=== PATIENT | female | born 1945 | race Caucasian/White ===

== ENCOUNTER 2020-04-10 12:00 | Emergency (ER) | payer MEDICARE, BC ==
[~2020-04-10] VITALS: Ht 162.6 cm; Wt 88.5 kg
--- OUTSIDE RECORDS SUMMARY | ~2020-04-10 | XMS | Encounter Summary ---
Demographics + + + | Address | [address] | | | [place] [address] | + + + | Home Phone | | + + + | Preferred Language | Unknown | + + + | Marital Status | | + + + | Judaism Affiliation | Unknown | + + + | Race | Unknown | + + + | Ethnic Group | Unknown | + + + Author + + + | Author | [facility] | | | and [place] | + + + | Organization | [facility] | | | and [place] | + + + | Address | Unknown | + + + | Phone | Unavailable | + + + Support + + +---------+ + | Name | Relationship | Address | Phone | + + +---------+ + | Severo Johnson | ECON | Unknown | | + + +---------+ + Care Team Providers + +------+ + | Care Secured Entrance Monitor Name | Role | Phone | + +------+ + | Miguel Griggs MD | PCP | | + +------+ + Encounter Details +--------+ + + + + | Date | Type | Department | Care Team | Description | +--------+ + + + + | 01/12/ | Orders Only | [facility] | Maurilio Toscano, | | | 2013 | | NEPRHOLOGY [place] | [address] | | | | | [address] | [address] [place], | | | | | [address] [place], [place] | [place] [address] | | | | | [address] | [phone] | | | | | [phone] | | | +--------+ + + + + Social History + +-------+ +--------+------+ | Tobacco Use | Types | Packs/Day | Years | Date | | | | | Used | | + +-------+ +--------+------+ | Never Assessed | | | | | + +-------+ +--------+------+ + + + | Sex Assigned at | Date Recorded | | | | + + + | Not on file | | + + + documented as of this encounter Plan of Treatment Not on filedocumented as of this encounter Procedures + +--------+ + + + | Procedure Name | Priori | Date/Time | Associated Diagnosis | Comments | | | ty | | | | + +--------+ + + + | PARATHYROID HORMONE, | Routin | 01/12/2014 | | Results for this | | INTACT AND CALCIUM | e | 12:00 AM | | procedure are in the | | | | PDT | | results section. | + +--------+ + + + documented in this encounter Results Parathyroid Hormone, Intact and Calcium (01/12/2014 12:00 AM PDT) + +-------+ + + + | Component | Value | Ref Range | Performed | Pathologist | | | | | At | Signature | + +-------+ + + + | PTH Intact | 65.46 | | EXTERNAL | | | | | | LAB | | + +-------+ + + + | Calcium | 10.1 | | EXTERNAL | | | | | | LAB | | + +-------+ + + + + + | Specimen | + + | Blood specimen | | (specimen) | + + + +---------+ + + | Performing | Address | City/State/Zipcode | Phone Number | | Organization | | | | + +---------+ + + | EXTERNAL LAB | | | | + +---------+ + + documented in this encounter Visit Diagnoses Not on filedocumented in this encounter"
--- OUTSIDE RECORDS SUMMARY | ~2020-04-10 | XMS | Encounter Summary ---
Demographics + + + | Address | [address] | | | [place] [address] | + + + | Home Phone | | + + + | Preferred Language | Unknown | + + + | Marital Status | | + + + | Methodist Affiliation | Unknown | + + + | Race | Unknown | + + + | Ethnic Group | Unknown | + + + Author + + + | Author | [facility] | | | and [place] | + + + | Organization | [facility] | | | and [...] Team Providers + +------+ + | Care Shift Supervisor Name | Role | Phone | + +------+ + | Miguel Griggs MD | PCP | | + +------+ + Encounter Details +--------+ + + + + | Date | Type | Department | Care Team | Description | +--------+ + + + + | 01/12/ | Orders Only | [facility] | Maurilio Toscano, | | | 2013 | | NEPRHOLOGY [place] | [address] | | | | | [address] | [address] [place], | | | | | [address] [place], [place] | [place] [address] | | | | | [address] | [phone] | | | | | [phone] | | | +--------+ + + + [...] | + +--------+ + + + | EXTERNAL LAB: CBC | Routin | 01/12/2014 | | Results for this | | | e | 12:00 AM | | procedure are in the | | | | PDT | | results section. | + +--------+ + + + | URINALYSIS WITH | Routin | 01/12/2014 | | Results for this | | MICROSCOPIC WITH | e | 12:00 AM | | procedure are in the | | CULTURE IF INDICATED | | PDT | | results section. | + +--------+ + + + | VITAMIN D, | Routin | 01/12/2014 | | Results for this | | DEFICIENCY SCREEN | e | 12:00 AM | | procedure are in the | | (25-HYDROXY) | | PDT | | results section. | + +--------+ + + + | MICROALBUMIN/CREATIN | Routin | 01/12/2014 | | Results for this | | INE RATIO, URINE | e | 12:00 AM | | procedure are in the | | TEST | | PDT | | results section. | + +--------+ + + + | MAGNESIUM | Routin | 01/12/2014 | | Results for this | | | e | 12:00 AM | | procedure are in the | | | | PDT | | results section. | + +--------+ + + + | RENAL FUNCTION PANEL | Routin | 01/12/2014 | | Results for this | | | e | 12:00 AM | | procedure are in the | | | | PDT | | results section. | + +--------+ + + + documented in this encounter Results Urinalysis with Microscopic with Culture if Indicated (01/12/2014 12:00 AM PDT) + + + + + + | Component | Value | Ref Range | Performed | Pathologist | | | | | At | Signature | + + + + + + | Color | Yellow | | EXTERNAL | | | | | | LAB | | + + + + + + | Clarity, | Clear | | EXTERNAL | | | Urine | | | LAB | | + + + + + + | Spec Grav, | 1.018 | | EXTERNAL | | | Fluid | | | LAB | | + + + + + + | Leukocyte | 1+Comment: 100 | | EXTERNAL | | | Esterase, | | | LAB | | | Urine | | | | | + + + + + + | Nitrite, | Negative | | EXTERNAL | | | Urine | | | LAB | | + + + + + + | Urobilinoge | Normal | | EXTERNAL | | | n, Urine | | | LAB | | + + + + + + | Total | Negative | | EXTERNAL | | | Protein | | | LAB | | + + + + + + | pH, Urine | 5 | | EXTERNAL | | | | | | LAB | | + + + + + + | Blood, | Negative | | EXTERNAL | | | Urine | | | LAB | | + + + + + + | Ketones | Negative | | EXTERNAL | | | | | | LAB | | + + + + + + | Bilirubin, | Negative | | EXTERNAL | | | Urine | | | LAB | | + + + + + + | Glucose, | Negative | | EXTERNAL | | | Urine | | | LAB | | + + + + + + | WBC, UA | | | EXTERNAL | | | | | | LAB | | + + + + + + | RBC, UA | | | EXTERNAL | | | | | | LAB | | + + + + + + | Epithelial | | | EXTERNAL | | | Cells | | | LAB | | + + + + + + | Bacteria, | | | EXTERNAL | | | UA | | | LAB | | + + + + + + | HYALINE | | | EXTERNAL | | | CASTS UA | | | LAB | | + + + + + + + + | Specimen | + + | | + + + +---------+ + + | Performing | Address | City/State/Zipcode | Phone Number | | Organization | | | | + +---------+ + + | EXTERNAL LAB | | | | + +---------+ + + Microalbumin/Creatinine Ratio, Urine (01/12/2014 12:00 AM PDT) + +-------+ + + + | Component | Value | Ref Range | Performed | Pathologist | | | | | At | Signature | + +-------+ + + + | ALBUMIN/CRE | 0 | | EXTERNAL | | | ATININE | | | LAB | | | RATIO.URINE | | | | | | .ORD.MG/G | | | | | | (BEAKER) | | | | | | | | | | | | | | | | | + +-------+ + + + + + | Specimen | + + | Urine specimen | | (specimen) | + + + +---------+ + + | Performing | Address | City/State/Zipcode | Phone Number | | Organization | | | | + +---------+ + + | EXTERNAL LAB | | | | + +---------+ + + Vitamin D, Deficiency Screen (25-Hydroxy) (01/12/2014 12:00 AM PDT) + +-------+ + + + | Component | Value | Ref Range | Performed | Pathologist | | | | | At | Signature | + +-------+ + + + | Vit D, | 27 | | EXTERNAL | | | 25-Hydroxy | | | LAB | | + +-------+ + + + + + | Specimen | + + | Blood specimen | | (specimen) | + + + +---------+ + + | Performing | Address | City/State/Zipcode | Phone Number | | Organization | | | | + +---------+ + + | EXTERNAL LAB | | | | + +---------+ + + External Lab: CBC (01/12/2014 12:00 AM PDT) + +-------+ + + + | Component | Value | Ref Range | Performed | Pathologist | | | | | At | Signature | + +-------+ + + + | WBC | 6.0 | 10 | EXTERNAL | | | | | | LAB | | + +-------+ + + + | Non- | 5.05 | 10 | EXTERNAL | | | Red Blood | | | LAB | | | Cells | | | | | | Counted | | | | | + +-------+ + + + | Hemoglobin | 14.7 | g/dL | EXTERNAL | | | | | | LAB | | + +-------+ + + + | Hematocrit, | 44.2 | % | EXTERNAL | | | POC | | | LAB | | + +-------+ + + + | MCV | 87.5 | fL | EXTERNAL | | | | | | LAB | | + +-------+ + + + | MCH | 29 | pg | EXTERNAL | | | | | | LAB | | + +-------+ + + + | MCHC | 33 | g/dL | EXTERNAL | | | | | | LAB | | + +-------+ + + + | Platelet | 245 | K/ L | EXTERNAL | | | Count | | | LAB | | | Plasma | | | | | + +-------+ + + + | RDW-CV | 14.6 | % | EXTERNAL | | | | | | LAB | | + +-------+ + + + | MPV | | fL | EXTERNAL | | | | | | LAB | | + +-------+ + + + | Differentia | Auto | | EXTERNAL | | | l Type | | | LAB | | + +-------+ + + + | % Segmented | 63.7 | % | EXTERNAL | | | | | | LAB | | | Neutrophils | | | | | + +-------+ + + + | % | 20.0 | % | EXTERNAL | | | Lymphocytes | | | LAB | | + +-------+ + + + | % Monocytes | 10.4 | % | EXTERNAL | | | | | | LAB | | + +-------+ + + + | % | 4.9 | % | EXTERNAL | | | Eosinophils | | | LAB | | + +-------+ + + + | % Basophils | 1.0 | % | EXTERNAL | | | | | | LAB | | + +-------+ + + + | Absolute | | / L | EXTERNAL | | | Segmented | | | LAB | | | Neutrophils | | | | | + +-------+ + + + | Absolute | | / L | EXTERNAL | | | Lymphocytes | | | LAB | | + +-------+ + + + | Absolute | | / L | EXTERNAL | | | Monocytes | | | LAB | | + +-------+ + + + | Absolute | | / L | EXTERNAL | | | Eosinophils | | | LAB | | + +-------+ + + + | Absolute | | / L | EXTERNAL | | | Basophils | | | LAB | | + +-------+ + + + + + | Specimen | + + | Blood specimen | | (specimen) | + + + +---------+ + + | Performing | Address | City/State/Zipcode | Phone Number | | Organization | | | | + +---------+ + + | EXTERNAL LAB | | | | + +---------+ + + Magnesium (01/12/2014 12:00 AM PDT) + +-------+ + + + | Component | Value | Ref Range | Performed | Pathologist | | | | | At | Signature | + +-------+ + + + | Magnesium | 2.0 | mg/dL | EXTERNAL | | | | | [...] | | | + +---------+ + + Renal Function Panel (01/12/2014 12:00 AM PDT) + +-------+ + + + | Component | Value | Ref Range | Performed | Pathologist | | | | | At | Signature | + +-------+ + + + | Glucose, | 81 | mg/dL | EXTERNAL | | | Fasting | | | LAB | | + +-------+ + + + | BUN | 28 | mg/dL | EXTERNAL | | | | | | LAB | | + +-------+ + + + | Creatinine | 1.35 | mg/dL | EXTERNAL | | | | | | LAB | | + +-------+ + + + | PHOSPHORUS | | mg/dL | EXTERNAL | | | | | | LAB | | + +-------+ + + + | Albumin | 4.3 | | EXTERNAL | | | | | | LAB | | + +-------+ + + + | Na | 139 | mmol/L | EXTERNAL | | | | | | LAB | | + +-------+ + + + | K | 4.6 | mmol/L | EXTERNAL | | | | | | LAB | | + +-------+ + + + | Cl | 104 | mmol/L | EXTERNAL | | | | | | LAB | | + +-------+ + + + | CO2 | 27 | mmol/L | EXTERNAL | | | | | | LAB | | + +-------+ + + + | Anion Gap | 12.6 | mmol/L | EXTERNAL | | | | | | LAB | | + +-------+ + + + | eGFR if not | | | EXTERNAL | | | | | | LAB | | | [place] | | | | | + +-------+ + + + | Phosphorus, | 2.9 | | EXTERNAL | | | Inorganic | | | LAB | | + +-------+ + + + | BUN/Creatin | 20.7 | | EXTERNAL | | | ine Ratio | | | LAB | | + +-------+ + + + | Calcium | 10.1 | mg/dL | EXTERNAL | | | | | | LAB | | + +-------+ + + + | Estimated | 39 | mg/dL | EXTERNAL | | | GFR | | | LAB | | + [...]
--- OUTSIDE RECORDS SUMMARY | ~2020-04-10 | XMS | Clinical Summary ---
Demographics + + + | Address | [address] | | | [place] [address] | + + + | Home Phone | | + + + | Preferred Language | Unknown | + + + | Marital Status | | + + + | Yarsanism Affiliation | Unknown | + + + | Race | Unknown | + + + | Ethnic Group | Unknown | + + + Author + + + | Author | [facility] | | | and [place] | + + + | Organization | [facility] | | | and [...] Team Providers + +------+ + | Care Industrial Electrical Engineer Name | Role | Phone | + +------+ + | Miguel Griggs MD | PCP | | + +------+ + Allergies Not on File Medications Not on file Active Problems Not on file Family History + + +------+ + | Medical History | Relation | Name | Comments | + + +------+ + | Heart disease | Maternal | | | | | Grandfath | | | | | er | | | + + +------+ + | Dementia | Maternal | | | | | Grandmoth | | | | | er | | | + + +------+ + | Cancer | Paternal | | Breast cancer | | | Grandmoth | | | | | er | | | + + +------+ + | Hypertension | Sister | | | + + +------+ + + +------+ + + | Relation | Name | Status | Comments | + +------+ + + | Father | | | compliation with prostate surgery | | | | (Age | | | | | 1994) | | + +------+ + + | Maternal Grandfather | | | | + +------+ + + | Maternal Grandfather | | | | + +------+ + + | Maternal Grandmother | | | | + +------+ + + | Maternal Grandmother | | | | + +------+ + + | Mother | | | Mecular Deqeneration | | | | (Age | | | | | 92) | | + +------+ + + | Paternal Grandfather | | | | + +------+ + + | Paternal Grandmother | | | | + +------+ + + | Paternal Grandmother | | | | + +------+ + + | Sister | | Alive | | + +------+ + + | Sister | | Alive | | + +------+ + + | Sister | | Alive | | + +------+ + + | Sister | | Alive | | + +------+ + + | Sister | | | | + +------+ + + Social History + +-------+ +--------+------+ | Tobacco Use | Types | Packs/Day | Years | Date | | | | | Used | | + +-------+ +--------+------+ | Never Smoker | | | | | + +-------+ +--------+------+ + + + | Sex Assigned at | Date Recorded | | | | + + + | Not on file | | + + + Last Filed Vital Signs + + + + + | Vital Sign | Reading | Time Taken | Comments | + + + + + | Blood Pressure | 106/80 | 02/02/2017 10:47 AM | | | | | PDT | | + + + + + | Pulse | 85 | 02/02/2017 10:47 AM | | | | | PDT | | + + + + + | Temperature | - | - | | + + + + + | Respiratory Rate | - | - | | + + + + + | Oxygen Saturation | - | - | | + + + + + | Inhaled Oxygen | - | - | | | Concentration | | | | + + + + + | Weight | 91.9 kg (202 lb 9.6 | 02/02/2017 10:47 AM | | | | oz) | PDT | | + + + + + | Height | - | - | | + + + + + | Body Mass Index | - | - | | + + + + + Plan of Treatment + + +-------+ + | Health Maintenance | Due Date | Last | Comments | | | | Done | | + + +-------+ + | Vaccine: | | | | | Dtap/Tdap/Td (1 - | 3 | | | | Tdap) | | | | + + +-------+ + | Vaccine: Zoster (1 | | | | | of 2) | 4 | | | + + +-------+ + | Breast Cancer | | | | | Screening | 9 | | | + + +-------+ + | Vaccine: | | | | | Pneumococcal 65+ (1 | 9 | | | | of 1 - PPSV23) | | | | + + +-------+ + | Vaccine: Influenza | | | | | (#1) | 0 | | | + + +-------+ + Results Not on filefrom Last 3 Months"
[~2020-04-10 12:00] MED LIST: ASPIR 8181 MG PO; ASPIRIN EC81 MG PO; ATORVASTATIN CA10 MG PO; BENADRYL ALLERG25 MG PO; CALCIUM 600 +1 EA15 PO; DAILY MULTIPLE1 EACH PO; FISH OIL 1,0001 EAC1 PO; KLOR-CON 1010 MEQ PO; LISINOPRIL5 MG PO; LOSARTAN POTASS50 MG PO; NORCO 5-325 TA1 EACH PO; SPIRONOLACTONE25 MG PO; SPIRONOLACTONE50 MG PO; VITAMIN C500 M1 PO; VITAMIN D32000 UNI1 PO
[2020-04-10] MEDS ORDERED: PROVENTIL HFA6.7 GM INH (16:45)
[2020-04-10] MEDS ORDERED: ONDANSETRON ODT8 MG PO (16:45)
--- NOTE | 2020-04-11 21:13 | EKG ---
[facility] [address] [facility] [place], [place] [address] Signed Normal sinus rhythm Low voltage QRS Nonspecific T wave abnormality Abnormal ECG No previous ECGs available Confirmed by LJ WILLIAM DO ([id number]) on 04/11/2020 9:12:48 PM Electronically Signed By: LJ WILLIAM DO 04/11/202112 PATIENT NAME: MONTY ARNOLD Electrocardiogram DATE OF : 43 PHYSICIAN: LJ WILLIAM DO REPORT #: [id number] REPORT IS CONFIDENTIAL AND NOT TO BE RELEASED WITHOUT AUTHORIZATION
== END 2020-04-10 17:45 | disposition home or self-care (01) ==
LOC: ED 12:00
DX: U07.1 COVID-19 (principal); I12.9 Hypertensive chronic kidney disease with stage 1 through stage 4 chronic kidney disease, or unspecified chronic kidney disease; N18.3 Chronic kidney disease, stage 3 (moderate); E78.5 Hyperlipidemia, unspecified; Z88.8 Allergy status to other drugs, medicaments and biological substances; Z88.5 Allergy status to narcotic agent; Z79.899 Other long term (current) drug therapy; Z79.82 Long term (current) use of aspirin
CPT/HCPCS: 71045; 80053; 81001; 83615; 83735; 84484; 85025; 85379; 85610; 85730; 86850; 86900; 86901; 93005; 93010; 99285-25